=== PATIENT | male | born 1985 ===

== ENCOUNTER 2020-08-25 17:27 | Outpatient (REF) | payer MEDICAID, SELFPAY ==
[2020-08-25 21:12] LABS: HCT 42.1 % (40.0-50.0); HGB 14.6 g/dL (13.5-17.5); MCH 32.7 pg (27.0-33.0); MCHC 34.7 % (32.0-36.0); MCV 94.2 fL (80-95); MPV 9.5 fL (8.0-11.0); Platelet Count 213 10^3/uL (130-400); RBC 4.47 10^6/uL (4.36-5.78); RDW 11.7 % (11.8-14.1); WBC 4.34 10^3/uL (4.4-10.8)
[2020-08-25 21:38] LABS: ALT 42 U/L (16-63); AST 24 U/L (15-37); Alkaline Phosphatase 69 U/L (46-116); BUN 10 mg/dL (7-18); Bilirubin, Total 0.6 mg/dL (0.2-1.0); CREATININE 0.76 mg/dL (0.70-1.30); Calcium 8.9 mg/dL (8.5-10.1); Calculated LDL 116 mg/dL (<100); Chloride 104 mmol/L (98-107); Cholesterol 174 mg/dL (<200); Ferritin 175 ng/mL (26-388); Glucose 84 mg/dL (74-106); HDL Cholesterol 46 mg/dL (40-60); Potassium 4.2 mmol/L (3.5-5.1); Sodium 140 mmol/L (136-145); Total Protein 6.7 g/dL (6.4-8.2); Triglyceride 63 mg/dL (<150)
[2020-08-25 22:19] LABS: Hemoglobin A1C 5.2 % (<5.7)
== END 2020-08-25 17:47 ==
LOC: NCHCN 17:27
PROVIDERS: PCP Family Medicine; Visit Provider Family Medicine
DX: G25.81 Restless legs syndrome (principal); E66.9 Obesity, unspecified
CPT/HCPCS: 80053; 80061; 85027; 82728; 83036

== ENCOUNTER 2022-03-15 20:13 | Outpatient (REF) | payer MEDICAID, SELFPAY ==
[2022-03-17 14:37] LABS: Chlamydia Result Negative (Negative); GC Result Negative (Negative)
== END 2022-03-15 20:14 | disposition home or self-care (01) ==
LOC: NCHCN 20:13
PROVIDERS: PCP Family Medicine; Visit Provider Family Medicine
DX: Z11.3 Encounter for screening for infections with a predominantly sexual mode of transmission (principal)
CPT/HCPCS: 87491; 87591

== ENCOUNTER 2023-05-02 16:57 | Outpatient (REF) | payer MEDICAID, SELFPAY ==
[2023-05-02 22:32] LABS: Hemoglobin A1C 5.2 % (<5.7)
[2023-05-02 22:38] LABS: ALT 52 U/L (16-63); AST 32 U/L (15-37); Albumin 4.2 g/dL (3.4-5.0); Alkaline Phosphatase 73 U/L (46-116); Anion Gap 8.1 mmol/L (3-11); BUN 11 mg/dL (7-18); Bilirubin, Total 0.6 mg/dL (0.2-1.0); CO2 27.9 mmol/L (21.0-32.0); CREATININE 0.8 mg/dL (0.70-1.30); Calcium 9.2 mg/dL (8.5-10.1); Chloride 102 mmol/L (98-107); Estimated GFR 116.17 (mL/min/1.73m2); Glucose 93 mg/dL (74-106); Potassium 4.5 mmol/L (3.5-5.1); Sodium 138 mmol/L (136-145); TSH (W/Ref FT4) 1.72 uIU/mL (0.36-3.74); Total Protein 7.9 g/dL (6.4-8.2)
[2023-05-08 13:08] LABS: IgA 114 mg/dL (85-499); Interpretation (See Note); Tissue Transglutaminase IgA <1.2 U/mL (<4.0)
== END 2023-05-02 16:58 | disposition home or self-care (01) ==
LOC: NCHCN 16:57
PROVIDERS: PCP Family Medicine; Visit Provider Family Medicine
DX: R10.30 Lower abdominal pain, unspecified (principal); E66.3 Overweight
CPT/HCPCS: 80053; 82784; 83516; 83036; 84443

== ENCOUNTER 2024-03-05 17:55 | Outpatient (REF) | payer MEDICAID, SELFPAY ==
[2024-03-05 22:24] LABS: Hemoglobin A1C 5.4 % (<5.7)
[2024-03-05 22:31] LABS: ALT 51 U/L (16-63); AST 28 U/L (15-37); Albumin 4.3 g/dL (3.4-5.0); Alkaline Phosphatase 66 U/L (46-116); Anion Gap 6.3 mmol/L (3-11); BUN 10 mg/dL (7-18); Bilirubin, Total 0.5 mg/dL (0.2-1.0); CO2 32.7 mmol/L (21.0-32.0); CREATININE 0.9 mg/dL (0.70-1.30); Calcium 9.5 mg/dL (8.5-10.1); Calculated LDL 91 mg/dL (<100); Chloride 102 mmol/L (98-107); Cholesterol 169 mg/dL (<200); Estimated GFR 111.42 (mL/min/1.73m2); Glucose 111 mg/dL (74-106); HDL Cholesterol 64 mg/dL (40-60); Sodium 141 mmol/L (136-145); Total Protein 7.7 g/dL (6.4-8.2); Triglyceride 74 mg/dL (<150)
[2024-03-06 19:06] LABS: HIV-1/2 Ag & Ab Screen Negative (Negative)
[2024-03-06 19:11] LABS: Hepatitis C Ab w Rflx HCV PCR Negative (Negative)
[2024-03-07 08:54] LABS: Syphilis Serology (RPR) Negative (Negative)
[2024-03-07 14:20] LABS: Chlamydia Result Negative (Negative); GC Result Negative (Negative)
[2024-03-08 21:21] LABS: TSH 2.15 uIU/Ml (0.36-3.74)
== END 2024-03-05 17:56 | disposition home or self-care (01) ==
LOC: NCHCN 17:55
PROVIDERS: PCP Family Medicine; Visit Provider Family Medicine
DX: F11.21 Opioid dependence, in remission (principal); Z11.3 Encounter for screening for infections with a predominantly sexual mode of transmission; Z00.00 Encounter for general adult medical examination without abnormal findings
CPT/HCPCS: 80053; 80061; 86803; 87389; 87491; 87591; 83036; 84443; 86592

== ENCOUNTER 2025-07-18 22:03 | Outpatient (REF) | payer MEDICAID, SELFPAY ==
[2025-07-18 22:20] LABS: Hemoglobin A1C 5.0 % (<5.7)
[2025-07-18 22:26] LABS: ALT 28 U/L (16-63); AST 16 U/L (15-37); Albumin 4.4 g/dL (3.4-5.0); Alkaline Phosphatase 62 U/L (46-116); Anion Gap 6.4 mmol/L (3-11); BUN 16 mg/dL (7-18); Bilirubin, Total 0.4 mg/dL (0.2-1.0); CO2 32.6 mmol/L (21.0-32.0); Calcium 9.5 mg/dL (8.5-10.1); Calculated LDL 107 mg/dL (<100); Chloride 102 mmol/L (98-107); Cholesterol 192 mg/dL (<200); Estimated GFR 114.74 (mL/min/1.73m2); Glucose 76 mg/dL (74-106); HDL Cholesterol 54 mg/dL (>or=40); Potassium 3.7 mmol/L (3.5-5.1); Sodium 141 mmol/L (136-145); Total Protein 7.7 g/dL (6.4-8.2); Triglyceride 159 mg/dL (<150); Vitamin D 25 Total 21 ng/mL (30-100)
[2025-07-21 08:59] LABS: HIV-1/2 Ag & Ab Screen Negative (Negative)
[2025-07-21 11:19] LABS: Chlamydia Result Negative (Negative); GC Result Negative (Negative)
[2025-07-21 11:21] LABS: Hepatitis C Ab w Rflx HCV PCR Negative (Negative)
[2025-07-21 11:24] LABS: Syphilis Serology (RPR) Negative (Negative)
== END 2025-07-18 22:04 | disposition home or self-care (01) ==
LOC: NCHCN 22:03
PROVIDERS: PCP Family Medicine; Visit Provider Family Medicine
DX: Z11.59 Encounter for screening for other viral diseases (principal); Z00.00 Encounter for general adult medical examination without abnormal findings
CPT/HCPCS: 80053; 80061; 82306; 86803; 87389; 87491; 87591; 83036; 86592